=== PATIENT | male | born 1990 | race Caucasian/White ===

== ENCOUNTER 2016-12-22 17:42 | Emergency (ER) | payer OTHER ==
[2016-12-22 17:54] VITALS: BMI 22.1
[2016-12-22 18:11] VITALS: O2SAT 97
--- NOTE | 2016-12-22 19:16 | C.PDOC ---
History Of Present Illness 26 y/o male presents to ED seeking heroin detox. Patient notes using 20 bags per day, intravenously. 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 Denies fever, chills, withdrawal symptoms, or other complaints. Time Seen by Provider: 12/22/16 19:09 Chief Complaint (Nursing): Substance Abuse History Per: Patient History/Exam Limitations: no limitations Onset/Duration Of Symptoms: Persistent Current Symptoms Are (Timing): Still Present Modifying Factor(s): Narcotics Associated Symptoms: denies: Suicidal Thoughts, Suicidal Plan Recent travel outside of the [place]: No Past Medical History Reviewed: Historical Data, Nursing Documentation, Vital Signs Vital Signs: Last Vital Signs Temp 98.4 F 12/22/16 19:27 Pulse 80 12/22/16 19:27 Resp 18 12/22/16 19:27 BP 113/72 12/22/16 19:27 Pulse Ox 97 12/22/16 19:27 - Medical History PMH: No Chronic Diseases Family History: States: Unknown Family Hx - Social History Hx Tobacco Use: Yes Hx Alcohol Use: Yes Hx Substance Use: Yes - Immunization History Hx Tetanus Toxoid Vaccination: No Hx Influenza Vaccination: No Hx Pneumococcal Vaccination: No Review Of Systems Except As Marked, All Systems Reviewed And Found Negative. Constitutional: Negative for: Fever, Chills Cardiovascular: Negative for: Palpitations Respiratory: Negative for: Shortness of Breath Gastrointestinal: Negative for: Nausea, Vomiting Skin: Negative for: Rash Physical Exam - Physical Exam Appears: Non-toxic, No Acute Distress Skin: Normal Color, Warm, Dry Head: Atraumatic, Normacephalic Eye(s): bilateral: PERRL, EOMI, Other (pinpoint pupils) Chest: Symmetrical Cardiovascular: Rhythm Regular Respiratory: Normal Breath Sounds, No Rales, No Rhonchi, No Wheezing Gastrointestinal/Abdominal: Soft, No Tenderness Back: Normal Inspection Extremity: Normal ROM, Capillary Refill (< 2 sec. ), Other (track paniagua right arm and left antecubital area, clean, dry and intact, no cellulitis) Neurological/Psych: Oriented x3, Normal Speech, Normal Cognition ED Course And Treatment O2 Sat by Pulse Oximetry: 97 (RA) Pulse Ox Interpretation: Normal Progress Note: D/w crisis. No detox beds available. Advised f/u in the morning for detox bed availability. Medical Decision Making Medical Decision Making: seeking heroin detox, no beds available f/u in AM for availability Disposition Doctor Will See Patient In The: Office Counseled Patient/Family Regarding: Studies Performed, Diagnosis - Disposition Referrals: [facility] [Outside] [facility] [Outside] Disposition: HOME/ ROUTINE Disposition Time: 19:14 Condition: GOOD Additional Instructions: call our Crisis offices after 9AM to inquire about availability for heroine detox Instructions: Narcotic Abuse (ED) - Clinical Impression Clinical Impression: Drug dependence - Scribe Statement The provider has reviewed the documentation as recorded by the Sallie Chopra Provider Scribe Attestation: All medical record entries made by the Sallie were at my direction and personally dictated by me. I have reviewed the chart and agree that the record accurately reflects my personal performance of the history, physical exam, medical decision making, and the department course for this patient. I have also personally directed, reviewed, and agree with the discharge instructions and disposition.
[2016-12-22 19:27] VITALS: BP 113/72; PULSE 80; RESP 18; TEMP 98.4
== END 2016-12-22 19:28 | disposition home or self-care (01) ==
LOC: C.ER 17:42
DX: F11.20 Opioid dependence, uncomplicated (principal)

== ENCOUNTER 2016-12-24 19:08 | Inpatient (IN) | payer MEDICAID, OTHER ==
[2016-12-24 19:08] VITALS: BMI 22.1
[2016-12-24 19:23] LABS: URINE BACTERIA RARE (<OCC); URINE BILIRUBIN NEGATIVE (NEGATIVE); URINE BLOOD NEGATIVE (NEGATIVE); URINE COLOR Straw (YELLOW); URINE GLUCOSE (UA) NORMAL (Normal); URINE KETONE NEGATIVE (NEGATIVE); URINE LEUKOCYTE ESTERASE NEG Leu/uL (Negative); URINE PROTEIN NEGATIVE (NEGATIVE); URINE UROBILINOGEN NORMAL mg/dL (0.2-1.0)
[2016-12-24 19:45] LABS: BASO # 0.1 K/uL (0.0-0.2); BASO % 1.1 % (0.0-2.0); EOS # 0.3 K/uL (0.0-0.7); EOS % 5.2 % (0.0-4.0); HEMATOCRIT 41.5 % (35.0-51.0); LYMPH # 2.9 K/uL (1.0-4.3); LYMPH % 50.3 % (20.0-40.0); MEAN CELL VOLUME 85.8 fL (80.0-94.0); MEAN CORPUSCULAR HEMOGLOBIN 28.7 pg (27.0-31.0); MEAN CORPUSCULAR HGB CONC 33.4 g/dL (33.0-37.0); MEAN PLATELET VOLUME 7.4 fL (7.2-11.7); MONO # 0.3 K/uL (0.0-0.8); MONO % 5.7 % (0.0-10.0); WHITE BLOOD COUNT 5.8 K/uL (4.8-10.8)
[2016-12-24 19:53] LABS: CHLORIDE 99 mmol/L (98-107); SODIUM 138 mmol/L (132-148)
[2016-12-24 19:55] LABS: BILIRUBIN,TOTAL 0.7 mg/dL (0.2-1.3); GFR AFRICAN-AMERICAN > 60
[2016-12-24 19:56] LABS: ALB/GLOB RATIO 1.4 (1.0-2.1); ALKALINE PHOSPHATASE 42 U/L (38-126); ALT/SGPT 18 U/L (21-72); AST/SGOT 17 U/L (17-59); BLOOD UREA NITROGEN 9 mg/dL (9-20); CALCIUM 8.8 mg/dl (8.6-10.4); CARBON DIOXIDE 25 mmol/L (22-30); GLUCOSE,RANDOM 103 mg/dL (75-110); TOTAL PROTEIN 7.3 g/dL (6.3-8.3)
[2016-12-24 19:57] LABS: ALCOHOL SERUM < 10 mg/dl (0-10)
--- NOTE | 2016-12-24 20:29 | C.PDOC ---
History Of Present Illness Pt is here requesting detox from Heroin. Time Seen by Provider: 12/24/16 20:19 Chief Complaint (Nursing): Substance Abuse History Per: Patient Onset/Duration Of Symptoms: Days Current Symptoms Are (Timing): Still Present Suicide/Self Injury Attempted (Context): None Modifying Factor(s): Narcotics Severity: Moderate Associated Symptoms: denies: Suicidal Thoughts, Suicidal Plan Additional History Per: Prior Records Past Medical History Reviewed: Historical Data, Nursing Documentation, Vital Signs Vital Signs: Last Vital Signs Temp 97.8 F 12/24/16 19:11 Pulse 95 H 12/24/16 19:11 Resp 16 12/24/16 19:11 BP 113/74 12/24/16 19:11 Pulse Ox 98 12/24/16 20:31 - Medical History PMH: No Chronic Diseases Surgical History: No Surg Hx Family History: States: Unknown Family Hx - Social History Hx Tobacco Use: Yes Hx Alcohol Use: No Hx Substance Use: Yes (IVDU Heroin) - Immunization History Hx Tetanus Toxoid Vaccination: No Hx Influenza Vaccination: No Hx Pneumococcal Vaccination: No Review Of Systems Except As Marked, All Systems Reviewed And Found Negative. Constitutional: Negative for: Fever, Weakness Cardiovascular: Negative for: Chest Pain Respiratory: Negative for: Shortness of Breath Gastrointestinal: Negative for: Vomiting, Abdominal Pain Musculoskeletal: Negative for: Neck Pain Neurological: Negative for: Weakness, Numbness, Seizures, Altered Mental Status Physical Exam - Physical Exam Appears: Non-toxic, No Acute Distress Skin: Normal Color, Warm, Dry Head: Atraumatic, Normacephalic Eye(s): bilateral: PERRL, EOMI Neck: Normal ROM, Supple Cardiovascular: Rhythm Regular Respiratory: Normal Breath Sounds, No Accessory Muscle Use Gastrointestinal/Abdominal: Soft, No Tenderness Extremity: Normal ROM, Other (track paniagua on arms) Neurological/Psych: Oriented x3, Normal Motor, Normal Sensation ED Course And Treatment - Laboratory Results Result Diagrams: 12/24/16 19:42 12/24/16 19:42 Lab Interpretation: No Acute Changes O2 Sat by Pulse Oximetry: 98 Pulse Ox Interpretation: Normal Progress Note: Pt is medically stable for detox admission. Disposition Counseled Patient/Family Regarding: Studies Performed, Diagnosis, Smoking Cessation - Disposition Disposition: HOSPITALIZED Disposition Time: 21:08 Condition: STABLE - Clinical Impression Clinical Impression: Opioid use disorder, severe, dependence Decision To Admit - Pt Status Changed To: Hospital Disposition Of: Inpatient - Admit Certification Admit to Inpatient:: After my assessment, the patient will require hospitalization for at least two midnights. This is because of the severity of symptoms shown, intensity of services needed, and/or the medical risk in this patient being treated as an outpatient. - InPatient: Physician Admission Certification: I certify that this patient requires 2 or more midnights of care for the following reason:: Detox. - . Bed Request Type: Detox Admitting Physician: Melinda Cueva Patient Diagnosis: Opioid use disorder, severe, dependence
[2016-12-24] MEDS ORDERED: Aluminum Hydroxide/Magnesium Hydroxide Susp (30 mL) PO PRN (23:42)
[2016-12-25] MEDS ORDERED: Buprenorphine Hydrochloride 2 mg SL ONE ×3 (10:14→13:22)
--- NOTE | 2016-12-25 14:35 | PCM.PSYCH ---
Initial Psychiatric Evaluation - Initial Psychiatric Evaluation Type of Admission: Voluntary Legal Status: Capacity Chief Complaint (in patient's own words): "I want heroin detox" History of Present Illness and Precipitating Events: Patient is a 26 year old male. He is single, with no children and lives in [place] with his younger brother and father. Patient currently works at a [employer], making [employer]. Pt presented to [facility] for heroin detox. Patient injects 15-20 bags of heroin a day. He denies alcohol use. He has used cocaine and marijuana in the past, but denies using currently. Pt smokes one pack a day. This is the patient' s first detox at [facility] but he has been in detox two times before and attended rehabilitation three times. He relapsed one month after his most recent detox last year. He denies any psychiatric hospitalizations or problems. The patient has been using heroin for three years and the longest that he stayed clean is 9 months. In the past, he was on Suboxone maintenance therapy for 7 months and being followed by a doctor in [place]. Pt was vague with dates and timeline. Pt says he is feeling "ok". He is starting to experience symptoms of sweating, hot/cold intolerance, abdominal pain and diarrhea. Patient is currently on probation for possession charges. PMHx: denies PsychHx: denies FamPsychHx: denies Current Medications: Active Medications Generic Name Dose Route Start Last Admin Trade Name Freq PRN Reason Stop Dose Admin Al Hydrox/Mg Hydrox/Simethicone 30 ml 12/24/16 23:42 Maalox 30 Ml PO TID PRN Indigestion / Heartburn Clonidine HCl 0.1 mg 12/24/16 23:42 12/25/16 01:12 Catapres PO 0.1 mg Q8 PRN Administration COWS Score More or Equal to 5 Hydroxyzine HCl 25 mg 12/24/16 21:54 12/24/16 22:01 Atarax PO 25 mg Q6 PRN Administration Anxiety Ibuprofen 600 mg 12/24/16 23:43 12/25/16 01:10 Motrin Tab PO 600 mg Q6H PRN Administration Pain, moderate (4-7) Loperamide HCl 2 mg 12/24/16 23:42 Imodium PO Q8 PRN Diarrhea Nicotine 1 patch 12/25/16 10:00 12/25/16 13:49 Nicoderm Cq TD 1 patch DAILY APURVA Administration Ondansetron HCl 4 mg 12/24/16 23:42 Zofran Tab PO Q8 PRN Nausea/Vomiting Trazodone HCl 100 mg 12/25/16 09:49 Desyrel PO HS PRN Insomnia Past Psychiatric History - Past Psychiatric History Pertinent Medical Hx (Current Medical&Sleep Prob, Allergies): Allergies Allergy/AdvReac Type Severity Reaction Status Date / Time No Known Allergies Allergy Verified 12/22/16 17:52 No Known Home Med 12/22/16 Review of Systems - Gastrointestinal Gastrointestinal: Abdominal Pain, Diarrhea - Psychiatric Psychiatric: Anxiety - Endocrine Endocrine: Cold Intolorance Mental Status Examination - Personal Presentation Personal Presentation: Looks stated age - Affect Affect: Broad - Motor Activity Motor Activity: Calm - Reliability in Providing Information Reliability in Providing Information: Fair - Speech Speech: Organized - Mood Mood: Depressed - Formal Thought Process Formal Thought Process: No Impairment - Obsessions/Compulsions Obsessions: No Compulsions: No - Cognitive Functions Orientation: Person, Place, Situation, Time Sensorium: Alert Attention/Concentration: Attentive Abstract Thinking: [place] Estimate of Intelligence: Average Judgement: Intact, as evidence by: Insight regarding need for hospitalization Memory: Remote impaired as evidenced by: Inability to recall historical events - Risk Risk: Withdrawal DSM 5 DX - DSM 5 DSM 5 Diagnosis: Opioid Withdrawal Opioid Use Disorder-Severe - Recommended/Plan of Treatment Treatment Recommendations and Plan of Treatment: Opiate Withdrawal -medications as needed -support and psychoeducation -monitor vitals Opiate Use Disorder -severe -Support and psychoeducation -CBT -attend groups and activities -Referral to outpatient program -AL for abstinence 33 minutes Projected ELOS: 4 days Prognosis: Good with treatment Discharge Plan and Discharge Criteria: No wdw sxs IOP or rehab, consider MAT - Smoking Cessation Smoking Cessation Initiated: Yes
[2016-12-26] MEDS: Buprenorphine Hydrochloride 2 mg SL SCH (10:04)
[2016-12-27] MEDS: Buprenorphine Hydrochloride 2 mg SL SCH (09:00)
[2016-12-27] MEDS: Benzocaine 10% Oral Anesthetic (12 ml) MM PRN ×2 (13:14→20:35)
[2016-12-27] MEDS ORDERED: Buprenorphine Hydrochloride 2 mg SL ONE (19:45)
--- NOTE | 2016-12-27 21:41 | PCM.PYCHPN ---
Psychiatric Progress Note - Psychiatric Progress Note Patient seen today, length of contact: 15 MIN Patient Chief Complaint: MY TOOTH HURTS Problems Identified/Issues Discussed: WITHDRAWAL SYMPTOM MANAGEMENT PAWS Medical Problems: DENTAL PAIN Diagnostic Results: REVIEWED DSM 5 Symptoms Update: NO ANXIETY Medication Change: No Medical Record Reviewed: Yes Mental Status Examination - Cognitive Function Orientation: Person, Place, Situation, Time Memory: Intact Attention: WNL Concentration: WNL Association: WNL Fund of Knowledge: WNL - Mood Mood: Depressed, Anxious - Affect Affect: Broad, Constricted - Speech Speech: Appropriate - Formal Thought Process Formal Thought Process: No Impairment Goal/Treatment Plan - Goal/Treatment Plan Need for Continued Stay: Remain at risks for inpatient hospitalization, Discharge may exacerbated symptoms Progress Toward Problem(s) and Goals/Treatment Plan: OPIOID USE DISORDER RECOGNIZING TRIGGERES OPIOID WITHDRAWAL-EATING AND SLEEPIONG BETTER Estimated Date of D/C: 12/29/16 - Smoking Cessation Smoking Cessation Initiated: Yes
--- NOTE | 2016-12-27 21:45 | PCM.PYCHPN ---
Psychiatric Progress Note - Psychiatric Progress Note Patient seen today, length of contact: 15 MIN Patient Chief Complaint: MY TOOTH AND JAW HURT Problems Identified/Issues Discussed: DENTAL PAIN AND NOT USING OPIOIDS FOR PAIN Medical Problems: DENTALPAIN Diagnostic Results: REVIEWED DSM 5 Symptoms Update: INSIGHT INTO PEOPLE, PLACES AND THINGS Medication Change: Yes (CLINDA, ANBESOL INCREASED MOTRIN) Medical Record Reviewed: Yes Mental Status Examination - Cognitive Function Orientation: Person, Place, Situation, Time Memory: Intact Attention: WNL Concentration: WNL Association: WNL Fund of Knowledge: WNL - Mood Mood: Depressed, Anxious - Affect Affect: Broad, Constricted - Speech Speech: Appropriate - Formal Thought Process Formal Thought Process: No Impairment - Suicidal Ideation Suicidal Ideation: No - Homicidal Ideation Homicidal Ideation: No Goal/Treatment Plan - Goal/Treatment Plan Need for Continued Stay: Discharge may exacerbated symptoms Progress Toward Problem(s) and Goals/Treatment Plan: OPIOID USE DISORDER RECOGNIZING TRIGGERES OPIOID WITHDRAWAL-EATING `WITH DIFFICULTY BECAUSE OF DENTAL PAIN ALSOM SLEEP PROBLEMS Estimated Date of D/C: 12/29/16 - Smoking Cessation Smoking Cessation Initiated: Yes
[2016-12-28] MEDS: Benzocaine 10% Oral Anesthetic (12 ml) MM PRN (00:12)
[2016-12-28 05:31] VITALS: RESP 18
--- NOTE | 2016-12-28 08:34 | PCM.PYCHDC ---
Mental Status Examination - Mental Status Examination Orientation: Person, Place, Situation, Time Memory: Intact Mood: Neutral Affect: Flat Speech: Appropriate Attention: WNL Concentration: WNL Association: WNL Fund of Knowledge: WNL Formal Thought Process: No Impairment Suicidal Ideation: No Current Homicidal Ideation?: No Discharge Summary - Discharge Note Reason for Hospitalization: Patient presented to [facility] for Opioid Detox Consultations:: List each consultation separately and include: 1. Reason for request. 2. Findings. 3. Follow-up Summary of Hospital Course include:: 1. Description of specific treatment plan utilized for patients during their course of treatmen. 2. Summarize the time- course for resolution of acute symptoms and/or regressed behaviors. 3. Describe issues identified and worked on during hospitalization. 4. Describe medication utilized. 5. Describe medical problems identified and treated. 6. Reassessment of suicide risk Summary of Hospital Course: Patient is a 26 year old male. He is single, with no children and lives in [place] with his younger brother and father. Patient currently works at a [employer], [employer]. Pt presented to [facility] for heroin detox. Patient injects 15-20 bags of heroin a day. He denies alcohol use. He has used cocaine and marijuana in the past, but denies using currently. Pt smokes one pack a day. This is the patient' s first detox at [facility] but he has been in detox two times before and attended rehabilitation three times. He relapsed one month after his most recent detox last year. He denies any psychiatric hospitalizations or problems. The patient has been using heroin for three years and the longest that he stayed clean is 9 months. In the past, he was on Suboxone maintenance therapy for 7 months and being followed by a doctor in [place]. Pt was vague with dates and timeline. Pt says he is feeling "ok". He is starting to experience symptoms of sweating, hot/cold intolerance, abdominal pain and diarrhea. Patient is currently on probation for possession charges. PMHx: denies PsychHx: denies FamPsychHx: denies Pt seen, chart reviewed, case discussed. Pt reports that he is feeling ok. He is in pain for a toothache for which he is receiving antibiotics and needs to follow up with an oral surgeon. He denies any symptoms. Pt plans on continuing treatment at [facility]. Attended groups NM, CBT used Subutex taper used Pt responded well to treatment - Final Diagnosis (DSM 5) Condition upon Discharge: STABLE DSM 5: Opioid withdrawal Opioid Use Disorder - severe Disposition: HOME/ ROUTINE Follow-up Treatment Plan: Continue below meds Attend aftercare Use relapse prevention skills Attend NA Return to ER if experience suicidal ideation, homicidal ideation, aggitation Prescriptions/Medication Reconciliation: Clindamycin [Cleocin] 150 mg PO Q6H #24 cap traZODone [Desyrel] 150 mg PO HS #30 tab - Antipsychotic Medications Pt discharged on 2 or more routine antipsychotic medications: No
[2016-12-28] MEDS: Buprenorphine Hydrochloride 2 mg SL SCH (09:11)
[2016-12-28 09:12] VITALS: BP 118/69; PULSE 71; TEMP 97.9; O2SAT 100
== END 2016-12-28 11:35 | disposition home or self-care (01) | DRG 745 ==
LOC: C.ER 19:08 → C.7D 21:09
PROVIDERS: ADMIT Psychiatry & Neurology Psychiatry; ATTEND Psychiatry & Neurology Psychiatry
PROC: HZ2ZZZZ Detoxification Services for Substance Abuse Treatment (ICD-10-PCS; principal; 2016-12-25)
PROC: HZ32ZZZ Individual Counseling for Substance Abuse Treatment, Cognitive-Behavioral (ICD-10-PCS; 2016-12-25)
PROC: HZ46ZZZ Group Counseling for Substance Abuse Treatment, Psychoeducation (ICD-10-PCS; 2016-12-25)
PROC: HZ42ZZZ Group Counseling for Substance Abuse Treatment, Cognitive-Behavioral (ICD-10-PCS; 2016-12-25)
PROC: HZ36ZZZ Individual Counseling for Substance Abuse Treatment, Psychoeducation (ICD-10-PCS; 2016-12-25)
DX: F11.23 Opioid dependence with withdrawal (principal); F19.20 Other psychoactive substance dependence, uncomplicated; F17.210 Nicotine dependence, cigarettes, uncomplicated; F41.9 Anxiety disorder, unspecified; K08.89 Other specified disorders of teeth and supporting structures